=== PATIENT | male | born 1970 | race Caucasian/White ===

== ENCOUNTER 2022-09-22 15:10 | Outpatient (CLI) | payer OTHER | END 2022-09-22 15:11 | disposition home or self-care (01) | LOC: SCSRAD 15:10 | PROVIDERS: ATTEND Family Medicine | DX: S39.92XA Unspecified injury of lower back, initial encounter (principal) | CPT/HCPCS: 72100 ==

== ENCOUNTER 2022-11-29 09:41 | Inpatient (IN) | payer OTHER, BC ==
[2022-11-29] MEDS ORDERED: Boostrix 0.5 ML (Tdap) VIAL (>/=7 yrs of age) ONE (10:03)
[2022-11-29] MEDS ORDERED: CEFAZOLIN 2 GM VIAL ONE (10:03)
[2022-11-29] MEDS ORDERED: Iopamidol-370 76% 500 ML MDV (1 ML CHARGE) ONE (10:09)
[2022-11-29] MEDS ORDERED: Morphine 4 MG/ML VIAL ONE ×2 (10:50→12:06)
[2022-11-29] MEDS ORDERED: Ondansetron PF 4 MG/2 ML Vial ONE (10:50)
[2022-11-29 11:07] LABS: #Eosinphils 0.1 thou/uL (0.0-0.7); #Monocytes 1.1 thou/uL (0.11-0.59); #Neutrophils 11.5 thou/uL (1.40-6.50); %Basophils 0.2 % (0.0-1.0); %Eosinophils 0.8 % (0.0-10.0); %Lymphocytes 19.2 % (21.0-51.0); %Monocytes 6.8 % (0.0-10.0); %Neutrophils 72.2 % (42.0-75.0); Hematocrit 39.6 % (42.0-52.0); Hemoglobin 13.1 g/dL (14.0-18.0); Mean Corpuscular HGB CONC 33.1 g/dL (32.0-36.0); Mean Corpuscular Hemoglobin 30.2 pg (27.0-31.0); Mean Corpuscular Volume 91.2 fl (78.0-98.0); Mean Platelet Volume 9.9 fL (7.4-10.4); Platelet Count 235 10x3/uL (130-400); RBC Distribution Width 13.6 % (11.5-14.5); Red Blood Cell (RBC) Count 4.34 mill/uL (4.70-6.10); White Blood Cell (WBC) Count 15.9 10x3/uL (4.8-10.8)
[2022-11-29 11:37] LABS: ALT (SGPT) 20 U/L (8-55); AST (SGOT) 26 U/L (5-34); Albumin 4.1 g/dL (3.5-5.0); Alkaline Phosphatase 70 U/L (40-110); Anion Gap 14 mmol/L (10-20); BUN (Urea Nitrogen) 16 mg/dL (8.4-25.7); Bilirubin, Total 0.3 mg/dL (0.2-1.2); Calc. Creatinine Clearance 0 mL/min (70-130); Carbon Dioxide 23 mmol/L (22-29); Chloride 105 mmol/L (98-107); Estimated GFR 80; Globulin 2.7 g/dL (2.4-3.5); Glucose 151 mg/dL (70-105); Potassium 3.8 mmol/L (3.5-5.1); Protein, Total 6.8 g/dL (6.0-8.3); Sodium 138 mmol/L (136-145)
[2022-11-29] MEDS ORDERED: TETANUS, DIPHTHERIA TOX,ADULT (TDVAX) 0.5 ML VIAL IM ONE (11:39)
[2022-11-29] MEDS ORDERED: Ipratropium/Albuterol 3 ML NEB NEB PRN (11:39)
[2022-11-29 13:04] LABS: PTT 24.8 sec (22.9-36.1); Prothrombin Time 13.8 sec (12.0-14.7)
[2022-11-29] MEDS ORDERED: Lidocaine 1% w/Epinephrine 1:100K 20 ML VIAL ONE (14:00)
[2022-11-29] MEDS: Sodium Chloride 0.9% 1,000 ML IV SCH ×2 (15:31→23:44)
[2022-11-29] MEDS: Cyclobenzaprine 10 MG TAB PO PRN (15:32)
[2022-11-29] MEDS: Gabapentin 300 MG CAP PO SCH ×2 (15:32→21:33)
[2022-11-29] MEDS: traMADol HCl 50 MG TAB PO SCH ×2 (18:14→23:45)
[2022-11-29] MEDS: Acetaminophen 500 MG TAB PO SCH ×2 (18:14→23:45)
[2022-11-29] MEDS: CEFAZOLIN 2 GM in Sodium Chloride 0.9% 100 ML IVPB SCH (18:15)
[2022-11-29] MEDS: Senokot S 8.6-50 MG TAB PO SCH (21:33)
[2022-11-29] MEDS: Famotidine/PF 20 mg/2ml Vial SLOW IVP SCH (21:33)
[2022-11-29] MEDS: Morphine 2 MG/ML VIAL SLOW IVP PRN (21:36)
[2022-11-29] MEDS: traMADol HCl 50 MG TAB PO PRN (23:45)
[2022-11-30] MEDS: CEFAZOLIN 2 GM in Sodium Chloride 0.9% 100 ML IVPB SCH ×2 (02:01→08:54)
[2022-11-30] MEDS: Acetaminophen 500 MG TAB PO SCH ×4 (05:18→23:40)
[2022-11-30] MEDS: traMADol HCl 50 MG TAB PO SCH ×4 (05:18→20:24)
[2022-11-30 05:30] VITALS: BMI 33.4
[2022-11-30 05:54] LABS: #Eosinphils 0.1 thou/uL (0.0-0.7); #Monocytes 0.9 thou/uL (0.11-0.59); #Neutrophils 7.7 thou/uL (1.40-6.50); %Basophils 0.1 % (0.0-1.0); %Eosinophils 0.6 % (0.0-10.0); %Lymphocytes 18.4 % (21.0-51.0); %Monocytes 8.7 % (0.0-10.0); %Neutrophils 71.8 % (42.0-75.0); Hematocrit 39.7 % (42.0-52.0); Hemoglobin 12.7 g/dL (14.0-18.0); Mean Corpuscular Volume 93.6 fl (78.0-98.0); Mean Platelet Volume 9.9 fL (7.4-10.4); Platelet Count 181 10x3/uL (130-400); RBC Distribution Width 14.1 % (11.5-14.5); Red Blood Cell (RBC) Count 4.24 mill/uL (4.70-6.10); White Blood Cell (WBC) Count 10.7 10x3/uL (4.8-10.8)
[2022-11-30 06:19] LABS: Anion Gap 10 mmol/L (10-20); BUN (Urea Nitrogen) 12 mg/dL (8.4-25.7); Calc. Creatinine Clearance 127 mL/min (70-130); Calcium 8.7 mg/dL (7.8-10.44); Carbon Dioxide 25 mmol/L (22-29); Chloride 105 mmol/L (98-107); Estimated GFR 95; Glucose 108 mg/dL (70-105); Potassium 4.1 mmol/L (3.5-5.1); Sodium 136 mmol/L (136-145)
[2022-11-30] MEDS: Senokot S 8.6-50 MG TAB PO SCH ×2 (08:54→20:26)
[2022-11-30] MEDS: Gabapentin 300 MG CAP PO SCH (08:54)
[2022-11-30] MEDS: Famotidine/PF 20 mg/2ml Vial SLOW IVP SCH ×2 (08:54→20:24)
[2022-11-30] MEDS: Polyethylene Glycol 3350 17 GM Packet PO SCH (08:54)
[2022-11-30] MEDS: Morphine 2 MG/ML VIAL SLOW IVP PRN ×2 (08:55→11:11)
[2022-11-30] MEDS: traMADol HCl 50 MG TAB PO PRN (09:49)
[2022-11-30] MEDS: Cyclobenzaprine 10 MG TAB PO PRN (09:49)
[2022-11-30] MEDS ORDERED: Bacitracin Zinc Ointment 30 gm TUBE TOP PRN (12:14)
[2022-11-30] MEDS ORDERED: traMADol HCl 50 MG TAB PO SCH (12:15)
[2022-11-30] MEDS: tiZANidine HCl 4 MG TAB PO SCH ×2 (14:17→20:25)
[2022-11-30] MEDS: Pregabalin 50 MG CAP PO SCH (20:25)
[2022-12-01] MEDS: traMADol HCl 50 MG TAB PO SCH ×4 (03:15→21:06)
[2022-12-01] MEDS: Ondansetron PF 4 MG/2 ML Vial IVP PRN ×3 (03:36→21:22)
[2022-12-01] MEDS: Acetaminophen 500 MG TAB PO SCH ×3 (05:25→19:25)
[2022-12-01] MEDS: Famotidine/PF 20 mg/2ml Vial SLOW IVP SCH ×2 (09:49→21:05)
[2022-12-01] MEDS: Senokot S 8.6-50 MG TAB PO SCH ×2 (09:49→21:04)
[2022-12-01] MEDS: Polyethylene Glycol 3350 17 GM Packet PO SCH (09:49)
[2022-12-01] MEDS: tiZANidine HCl 4 MG TAB PO SCH ×3 (09:50→21:05)
[2022-12-01] MEDS: Pregabalin 50 MG CAP PO SCH ×3 (09:51→21:05)
[2022-12-01] MEDS: Bacitracin Zinc Ointment 30 gm TUBE TOP SCH (09:52)
[2022-12-01] MEDS ORDERED: Scopolamine 1.5 mg/72 hour Patch TD SCH (22:00)
[2022-12-02] MEDS: Acetaminophen 500 MG TAB PO SCH ×4 (00:02→17:50)
[2022-12-02] MEDS: traMADol HCl 50 MG TAB PO SCH ×3 (03:23→14:52)
[2022-12-02] MEDS: Famotidine/PF 20 mg/2ml Vial SLOW IVP SCH (09:48)
[2022-12-02] MEDS: Senokot S 8.6-50 MG TAB PO SCH (09:48)
[2022-12-02] MEDS: Pregabalin 50 MG CAP PO SCH ×2 (09:49→14:52)
[2022-12-02] MEDS: Polyethylene Glycol 3350 17 GM Packet PO SCH (09:50)
[2022-12-02] MEDS: Bacitracin Zinc Ointment 30 gm TUBE TOP SCH (09:51)
[2022-12-02] MEDS: tiZANidine HCl 4 MG TAB PO SCH (09:51)
[2022-12-02] MEDS: Ondansetron PF 4 MG/2 ML Vial IVP PRN (10:11)
[2022-12-02] MEDS ORDERED: tiZANidine HCl 4 MG TAB PO PRN (12:18)
[2022-12-02] MEDS ORDERED: BACITRACIN ZINC TP PRN (16:15)
[2022-12-02 17:12] VITALS: BP 144/75; TEMP 97.5
== END 2022-12-02 20:26 | disposition home or self-care (01) | DRG 988 ==
LOC: ERS 09:41 → SURG A 13:42
PROVIDERS: ADMIT Surgery; ATTEND Surgery
PROC: 0HQEXZZ Repair Left Lower Arm Skin, External Approach (ICD-10-PCS; principal; 2022-11-29)
PROC: 0JQP0ZZ Repair Left Lower Leg Subcutaneous Tissue and Fascia, Open Approach (ICD-10-PCS; 2022-11-29)
PROC: 0HQDXZZ Repair Right Lower Arm Skin, External Approach (ICD-10-PCS; 2022-11-29)
DX: S27.0XXA Traumatic pneumothorax, initial encounter (principal); S36.039A Unspecified laceration of spleen, initial encounter; S22.42XA Multiple fractures of ribs, left side, initial encounter for closed fracture; S27.321A Contusion of lung, unilateral, initial encounter; S81.012A Laceration without foreign body, left knee, initial encounter; S50.812A Abrasion of left forearm, initial encounter; S50.811A Abrasion of right forearm, initial encounter; R40.2410 Glasgow coma scale score 13-15, unspecified time; W01.0XXA Fall on same level from slipping, tripping and stumbling without subsequent striking against object, initial encounter; Y93.55 Activity, bike riding; S51.011A Laceration without foreign body of right elbow, initial encounter; S51.012A Laceration without foreign body of left elbow, initial encounter
CPT/HCPCS: 12002; 36415; 70450; 71045; 71260; 72125; 74177; 80048; 80053; 85025; 85610; 85730; 86850; 86900; 86901; 90471; 90715; 94760; 96374; 96375; 96376; 97139; G0390; J2270; J2272; J2405; J3490; J7050; Q9967; S0028